=== PATIENT | female | born 1950 | race Caucasian/White ===

== ENCOUNTER 2022-02-02 15:34 | Emergency (ER) | payer MEDICARE ==
[~2022-02-02] VITALS: Ht 163.8 cm; Wt 75.0 kg
[~2022-02-02 15:34] MED LIST: BENZ2TAB PO; CARV-50 PO; DIVA-74 PO; DONE-46 PO; HYDR-3686 PO; LORA2TAB96 PO; OLAN5TAB5 PO; OMEP40CA21 PO; SERT25TA PO
[2022-02-02 15:39] VITALS: BP 108/72
[2022-02-02] MEDS ORDERED: acetaminophen 325mg tablet PO ONE (17:45)
[2022-02-02] MEDS ORDERED: POLY119P2 PO (18:03)
== END 2022-02-02 18:30 | disposition home or self-care (01) ==
LOC: ER 15:35
DX: R10.31 Right lower quadrant pain (principal); J90 Pleural effusion, not elsewhere classified; F03.90 Unspecified dementia, unspecified severity, without behavioral disturbance, psychotic disturbance, mood disturbance, and anxiety; W19.XXXA Unspecified fall, initial encounter; Y93.89 Activity, other specified; Y92.89 Other specified places as the place of occurrence of the external cause; Y99.8 Other external cause status
CPT/HCPCS: 74176; 99284